=== PATIENT | male | born 1985 | race Caucasian/White ===

== ENCOUNTER 2019-01-13 15:01 | Emergency (ER) | payer BC | END 2019-01-13 17:31 | disposition home or self-care (01) | LOC: JER 15:01 ==

== ENCOUNTER 2019-01-16 02:16 | Emergency (ER) | payer BC ==
[2019-01-16 02:38] VITALS: BMI 18.3
[2019-01-16] MEDS ORDERED: morphine CARPU-JECT 2 MG/1 ML DISP.SYRIN IVPUSH ONE (02:39)
[2019-01-16] MEDS ORDERED: methylPREDNISolone NA SUCC 125 MG/2 ML VIAL IVPB ONE (02:39)
[2019-01-16] MEDS ORDERED: SODIUM CHLORIDE 1,000 ML IV STA (02:40)
[2019-01-16] MEDS ORDERED: MORPHINE SULFATE 2 MG/ML VIAL ONE (02:47)
[2019-01-16] MEDS ORDERED: methylPREDNISolone NA SUCC 125 MG/2 ML VIAL ONE (02:48)
[2019-01-16] MEDS ORDERED: ACETAMINOPHEN 1000 MG/100 ML VIAL (NON FORMULARY) IVPB ONE (04:22)
[2019-01-16] MEDS ORDERED: ACETAMINOPHEN INJECTION 100 ML IVPB ONE (04:30)
[2019-01-16 04:39] VITALS: BP 126/75; PULSE 70; TEMP 98.6
--- NOTE | 2019-01-16 05:02 | PDOC ---
Documentation entered by Mike Reardon SCRIBE, acting as scribe for Rafia Márquez DO. Rafia Márquez DO: This documentation has been prepared by the Caron garcia Elijah, SCRIBE, under my direction and personally reviewed by me in its entirety. I confirm that the documentation accurately reflects all work , treatment, procedures, and medical decision making performed by me. History of Present Illness - General Chief Complaint: Migraine Headache Stated Complaint: SINUS PROBLEM,HEADACHE Time Seen by Provider: 01/16/19 02:34 History Source: Patient Exam Limitations: No Limitations - History of Present Illness Initial Comments: 01/16/19 02:45 Patient is a 34 year old male with a significant past medical history of ethmoid sinusitis (discharged yesterday) who presents to the ED with a headache beginning 1.5 hours prior. The patient notes that he had a similar headache after being discharged but subsided upon his arrival back home. The patient described the pain as splitting and felt worse at the left sikh. The patient also notes that his head felt heavy as well. Allergies: NKA Social History: Tobacco User (x20 cigarettes a day) Past History - Past Medical History Allergies/Adverse Reactions: Allergies Allergy/AdvReac Type Severity Reaction Status Date / Time No Known Allergies Allergy Verified 01/13/19 15:07 Home Medications: Ambulatory Orders Amox-Tr/K Cl [Augmentin - 875Mg Tablet] 1 tab PO BID #10 tablet 01/13/19 Hydrocodone/Acetaminophen [[place] 5-325 Tablet] 1 each PO Q6H PRN #10 tablet MDD 4 01/16/19 COPD: No - Immunization History Immunization Up to Date: Yes - Suicide/Smoking/Psychosocial Hx Smoking History: Never smoked Number of Cigarettes Smoked Daily: 20 Information on smoking cessation initiated: No Hx Alcohol Use: No Drug/Substance Use Hx: No Review of Systems - Review of Systems Comments:: 01/16/19 02:45 GENERAL/CONSTITUTIONAL: +Headache. No fever or chills. No weakness. HEAD, EYES, EARS, NOSE AND THROAT: No change in vision. No ear pain or discharge. No sore throat. GASTROINTESTINAL: No nausea, vomiting, diarrhea or constipation. GENITOURINARY: No dysuria, frequency, or change in urination. CARDIOVASCULAR: No chest pain or shortness of breath. RESPIRATORY: No cough, wheezing, or hemoptysis. MUSCULOSKELETAL: No joint or muscle swelling or pain. No neck or back pain. SKIN: No rash NEUROLOGIC: No headache, vertigo, loss of consciousness, or change in strength/ sensation. ENDOCRINE: No increased thirst. No abnormal weight change. HEMATOLOGIC/LYMPHATIC: No anemia, easy bleeding, or history of blood clots. ALLERGIC/IMMUNOLOGIC: No hives or skin allergy. *Physical Exam - Vital Signs Last Vital Signs Temp Pulse Resp BP Pulse Ox 98.9 F 77 20 131/85 99 01/16/19 02:32 01/16/19 02:32 01/16/19 02:32 01/16/19 02:32 01/16/19 02:32 - Physical Exam Comments: 01/16/19 02:46 GENERAL: Awake, in no acute distress HEAD: NC/AT EYES: PERRLA, EOMI, sclera anicteric, visual acuity grossly intact ENT: Moist mucosa NECK: Normal ROM, supple, LUNGS: Breath sounds equal, clear to auscultation bilaterally. Normal work of breathing. HEART: Regular rate and rhythm, , no murmurs, rubs or gallops ABDOMEN: Soft, nontender, normoactive bowel sounds. No guarding, no rebound. No masses. Non-distended. CHEST WALL: BACK: No midline tenderness. EXTREMITIES: Normal range of motion, no edema. No clubbing or cyanosis. No erythema, or tenderness NEUROLOGICAL: Alert, oriented x4, Cranial nerves II through XII grossly intact. Normal speech, normal gait. SKIN: Warm, Dry, normal turgor, no rashes or lesions noted. 01/16/19 04:50 ED Treatment Course - RADIOLOGY Radiology Studies Ordered: Category Date Time Status BRAIN CTA [CT] Stat CT Scan 01/16/19 02:38 Ordered - Medications Given in the ED: ED Medications Discontinued Medications Generic Name Dose Route Start Last Admin Trade Name Freq PRN Reason Stop Dose Admin Diphenhydramine HCl 25 mg 01/16/19 02:39 01/16/19 02:54 Benadryl Injection - IVPUSH 01/16/19 02:40 25 mg ONCE ONE Administration Methylprednisolone Sodium Succinate 125 mg 01/16/19 02:39 01/16/19 02:54 Solu-Medrol - IVPB 01/16/19 02:40 125 mg ONCE ONE Administration Morphine Sulfate 2 mg 01/16/19 02:39 01/16/19 02:54 Morphine Injection - IVPUSH 01/16/19 02:40 2 mg ONCE ONE Administration Medical Decision Making - Medical Decision Making 01/16/19 03:18 Okay to do a CTA of head, last BUN/creatinine was within normal limits with a creatinine of 0.9 on 01/13/2019 01/16/19 04:53 On reevaluation at 4:44 AM patient is resting comfortably, there is some mild residual intermittent pain which is partially reproducible over the left scalp CTA of the head shows no acute abnormalities Patient given Tylenol 1000 mg IV, Solu-Medrol 125 mg, Benadryl 25 mg and morphine 2 mg with improvement He will be discharged home with a short course of analgesics and will follow up with ENT for his sinusitis as well as neurology if his headache returns or persists greater than 1 week Headache has been fluctuating in intensity, he does not describe it as the worst headache of his life, it was not thunderclap in onset, there is no fever or neck stiffness or rash. Based on clinical presentation there is no indication for lumbar puncture at this time, this would present more risk than benefit. *DC/Admit/Observation/Transfer Diagnosis at time of Disposition: Left temporal headache - Discharge Dispostion Disposition: HOME Condition at time of disposition: Stable Decision to Admit order: No - Referrals - Patient Instructions Printed Discharge Instructions: DI for Headache - Post Discharge Activity Forms/Work/School Notes: Back to Work - Attestations Physician Attestion: 01/16/19 04:58 I, Dr Rafia Márquez, attest that this document has been prepared under my direction and personally reviewed by me in its entirety. I further attest, that it accurately reflects all work, procedures and medical decision making performed by me.
== END 2019-01-16 05:16 | disposition home or self-care (01) ==
LOC: JER 02:16
PROC: 3E033NZ Introduction of Analgesics, Hypnotics, Sedatives into Peripheral Vein, Percutaneous Approach (ICD-10-PCS; principal; 2019-01-16)
PROC: 3E033GC Introduction of Other Therapeutic Substance into Peripheral Vein, Percutaneous Approach (ICD-10-PCS; 2019-01-16)
PROC: 3E0337Z Introduction of Electrolytic and Water Balance Substance into Peripheral Vein, Percutaneous Approach (ICD-10-PCS; 2019-01-16)
DX: R51 Headache (principal); F17.210 Nicotine dependence, cigarettes, uncomplicated
CPT/HCPCS: 70450-TC; 70496-TC; 99282-25; J0131; J7030